=== PATIENT | female | born 1965 | race Caucasian/White ===

== ENCOUNTER 2016-09-25 20:43 | Inpatient (IN) | payer MEDICAID ==
[~2016-09-25] VITALS: Ht 165.1 cm; Wt 124.5 kg
[~2016-09-25 20:43] MED LIST: ASPI-247 PO; ATE50T PO; CLON05T PO; CLOP75TA28 PO; LISI40TA PO; LOVA40TA72 PO; NOR10T PO; OMEP20CA5 PO; SERT-135 PO; TOPI50TA32 PO
[2016-09-25 21:14] LABS: Basophils # (auto) 0 uL; Basophils % (auto) 0.4 % (0.0-2.0); Eosinophils # (auto) 0.2 uL; Eosinophils % (auto) 1.5 % (0.0-7.0); Hematocrit 33.5 % (36.0-46.0); Hemoglobin 10.4 g/dL (12.2-16.2); Lymphocytes # (auto) 3.6 uL; Lymphocytes % (auto) 31.7 % (10.0-50.0); Mean Corpuscular Hemoglobin 22.5 pg (28.0-32.0); Mean Corpuscular Hgb Conc. 31.1 g/dL (32.0-36.0); Mean Corpuscular Volume 72.4 fL (80.0-100.0); Monocytes # (auto) 0.6 uL; Monocytes % (auto) 5.5 % (0.0-12.0); Neutrophils # (auto) 6.8 uL; Neutrophils % (auto) 60.9 % (37.0-80.0); Platelet Count (auto) 420 10^3/uL (140-450); Red Cell Distribution Width 17.8 % (11.6-16.0); White Blood Cell 11.2 10^3/uL (4.4-10.8)
[2016-09-25 21:15] LABS: DEFINITIVE VIEW TRANSMISSION; Mean Platelet Volume 8.5 fL (7.4-10.4)
[2016-09-25 21:28] LABS: INR 0.93 (0.9-1.15); Partial Thromboplastin Time 24.4 sec (22.64-33.71); Prothrombin Time 9.6 sec (9.37-12.3)
[2016-09-25 21:36] LABS: Albumin 3.2 g/dL (3.4-5.0); Anion Gap 11 (5-15); Aspartate Aminotransferase 4 U/L (15-37); BUN/Creatinine Ratio 14.7; Blood Urea Nitrogen 16 mg/dL (7-18); Calcium 7.2 mg/dL (8.5-10.1); Carbon Dioxide 23 mmol/L (21-32); Chloride 106 mmol/L (98-107); GFR African American 68 mL/min; GFR Non-African American 56 mL/min; Glucose 97 mg/dL (74-106); Magnesium 2.2 mg/dL (1.6-2.6); Potassium 3.8 mmol/L (3.5-5.1); Sodium 140 mmol/L (136-145)
[2016-09-25 21:41] LABS: Alkaline Phosphatase 105 U/L (45-117); Bilirubin, Total 0.2 mg/dL (0.2-1.0); Total Protein 7.5 g/dL (6.4-8.2)
[2016-09-25 21:49] LABS: B-Type Natriuretic Peptide 13.7 pg/mL (0-100)
[2016-09-25 22:07] LABS: Temperature: 23.3 C (20.0-25.0)
[2016-09-26] MEDS ORDERED: ONDANSETRON ODT 4 MG TAB PO ONE (00:15)
[2016-09-26] MEDS ORDERED: ASPirin 81 mg TAB PO ONE (00:15)
[2016-09-26] MEDS ORDERED: METO-281 PO (00:20)
[2016-09-26] MEDS ORDERED: LEVO125T6 PO (00:20)
[2016-09-26] MEDS ORDERED: LIOT5TAB PO (00:20)
[2016-09-26] MEDS ORDERED: LEVE750T15 PO (00:20)
[2016-09-26] MEDS ORDERED: LANS30CA63 PO (00:20)
[2016-09-26] MEDS ORDERED: TEMA15CA PO (00:20)
[2016-09-26] MEDS ORDERED: ESTR1TAB36 PO (00:20)
[2016-09-26] MEDS ORDERED: CALC0.25 PO (00:20)
[2016-09-26] MEDS ORDERED: DIPH50TA9 PO (00:20)
[2016-09-26] MEDS ORDERED: METF-312 PO (00:20)
[2016-09-26] MEDS ORDERED: ACETAMINOPHEN 325 MG TAB PO PRN (01:15)
[2016-09-26] MEDS ORDERED: ONDANSETRON HCL 4 MG/2 ML VIAL IV PRN (01:15)
[2016-09-26] MEDS ORDERED: DEXTROSE (50%) 50ML SYRG IV PRN (01:15)
[2016-09-26] MEDS: clonazePAM 0.5 MG TAB PO SCH ×2 (01:47→21:50)
[2016-09-26] MEDS: HYDROcodone-ACET 5/325MG TAB PO PRN ×3 (02:35→16:31)
[2016-09-26 02:41] VITALS: BP 140/70
[2016-09-26] MEDS ORDERED: LORA-622 PO (04:34)
[2016-09-26] MEDS ORDERED: TOPI100T29 PO (04:34)
[2016-09-26] MEDS ORDERED: ERGO1CAP6 PO (04:34)
[2016-09-26] MEDS ORDERED: ATEN100T PO (04:34)
[2016-09-26 05:07] VITALS: BP 123/73
[2016-09-26] MEDS: ACCU-CHEK COMFORT CURVE STRIP VI SCH ×4 (05:57→23:11)
[2016-09-26] MEDS: InsuLIN REG 1unit/0.01ml Soln (100units/ml) SC SCH ×4 (05:57→23:11)
[2016-09-26] MEDS: LEVOTHYROXINE SODIUM 25 MCG TAB PO SCH (05:58)
[2016-09-26] MEDS ORDERED: PNEUMOCOCCAL VACC POLYS 25 MCG/0.5 ML VIAL IM ONE (07:15)
[2016-09-26 09:00] VITALS: BP 109/62
[2016-09-26] MEDS: ATENOLOL 50 MG TAB PO SCH (10:00)
[2016-09-26] MEDS ORDERED: LEVETIRACETAM 500 MG TAB PO SCH (10:00)
[2016-09-26] MEDS: TOPIRAMATE 25 MG TAB PO SCH ×2 (11:20→21:51)
[2016-09-26] MEDS: SERTRALINE HCL 50 MG TAB PO SCH (11:20)
[2016-09-26] MEDS: CLOPIDOGREL BISULFATE 75 MG TAB PO SCH (11:20)
[2016-09-26] MEDS: FAMOTIDINE 20 MG TAB PO SCH ×2 (11:21→21:51)
[2016-09-26] MEDS: ENOXAPARIN SOD 40 MG/0.4 ML SYRINGE SC SCH (11:21)
[2016-09-26 12:32] VITALS: BP 119/58
[2016-09-26] MEDS ORDERED: LORazepam 2MG/ML-1ML VIAL IV ONE (15:15)
[2016-09-26 16:55] VITALS: BP 110/71
[2016-09-26 21:43] VITALS: BP 122/72
[2016-09-26] MEDS: LEVETIRACETAM 500 MG TAB PO SCH (21:50)
[2016-09-26] MEDS ORDERED: PATIENTS OWN MEDICATION (lovastatin 40 MG) PO SCH ×2 (22:00)
[2016-09-26] MEDS ORDERED: ATORVASTATIN 20 MG TAB PO SCH (22:00)
[2016-09-27 04:51] VITALS: BP 133/71
[2016-09-27] MEDS: InsuLIN REG 1unit/0.01ml Soln (100units/ml) SC SCH ×2 (05:00→11:18)
[2016-09-27] MEDS: ACCU-CHEK COMFORT CURVE STRIP VI SCH ×2 (05:01→11:18)
[2016-09-27 05:48] LABS: Basophils # (auto) 0 uL; Basophils % (auto) 0.6 % (0.0-2.0); DEFINITIVE VIEW TRANSMISSION; Eosinophils # (auto) 0.2 uL; Eosinophils % (auto) 2.3 % (0.0-7.0); Hematocrit 30.2 % (36.0-46.0); Hemoglobin 9.4 g/dL (12.2-16.2); Lymphocytes # (auto) 3.2 uL; Lymphocytes % (auto) 43.5 % (10.0-50.0); Mean Corpuscular Hemoglobin 22.7 pg (28.0-32.0); Mean Corpuscular Hgb Conc. 31.3 g/dL (32.0-36.0); Mean Corpuscular Volume 72.4 fL (80.0-100.0); Mean Platelet Volume 8.8 fL (7.4-10.4); Monocytes # (auto) 0.5 uL; Monocytes % (auto) 6.5 % (0.0-12.0); Neutrophils # (auto) 3.5 uL; Neutrophils % (auto) 47.1 % (37.0-80.0); Platelet Count (auto) 319 10^3/uL (140-450); Red Cell Distribution Width 17.5 % (11.6-16.0); White Blood Cell 7.4 10^3/uL (4.4-10.8)
[2016-09-27 06:02] LABS: Albumin 2.8 g/dL (3.4-5.0); BUN/Creatinine Ratio 14.3; Calcium 7.1 mg/dL (8.5-10.1); Potassium 3.5 mmol/L (3.5-5.1)
[2016-09-27 06:05] LABS: Bilirubin, Total 0.3 mg/dL (0.2-1.0); Total Protein 6.4 g/dL (6.4-8.2)
[2016-09-27] MEDS: LEVOTHYROXINE SODIUM 25 MCG TAB PO SCH (06:30)
[2016-09-27 09:00] VITALS: BP 118/73
[2016-09-27] MEDS: FAMOTIDINE 20 MG TAB PO SCH (09:17)
[2016-09-27] MEDS: CLOPIDOGREL BISULFATE 75 MG TAB PO SCH (09:18)
[2016-09-27] MEDS: SERTRALINE HCL 50 MG TAB PO SCH (09:18)
[2016-09-27] MEDS: ENOXAPARIN SOD 40 MG/0.4 ML SYRINGE SC SCH (09:18)
[2016-09-27] MEDS: LEVETIRACETAM 500 MG TAB PO SCH (09:18)
[2016-09-27] MEDS: TOPIRAMATE 25 MG TAB PO SCH (09:18)
[2016-09-27] MEDS: HYDROcodone-ACET 5/325MG TAB PO PRN ×2 (09:19→15:42)
[2016-09-27] MEDS: ATENOLOL 50 MG TAB PO SCH (09:19)
[2016-09-27 12:56] VITALS: BP 106/72
[2016-09-27] MEDS: LORazepam 2MG/ML-1ML VIAL IV PRN ×2 (13:48→16:39)
[2016-09-27 17:00] VITALS: BP 114/65
== END 2016-09-27 17:30 | disposition left against medical advice (07) | DRG 53 ==
LOC: ER 20:46 → WEST WING 20:47
PROVIDERS: ADMIT Nurse Practitioner; ATTEND Internal Medicine
DX: G40.909 Epilepsy, unspecified, not intractable, without status epilepticus (principal); Z68.42 Body mass index [BMI] 45.0-49.9, adult; I10 Essential (primary) hypertension; R53.1 Weakness; E66.01 Morbid (severe) obesity due to excess calories; E11.9 Type 2 diabetes mellitus without complications; E78.5 Hyperlipidemia, unspecified; F32.9 Major depressive disorder, single episode, unspecified; F41.9 Anxiety disorder, unspecified; K21.9 Gastro-esophageal reflux disease without esophagitis; G43.409 Hemiplegic migraine, not intractable, without status migrainosus; E89.0 Postprocedural hypothyroidism; G47.00 Insomnia, unspecified; F80.81 Childhood onset fluency disorder; J44.9 Chronic obstructive pulmonary disease, unspecified; Z82.49 Family history of ischemic heart disease and other diseases of the circulatory system; Z86.73 Personal history of transient ischemic attack (TIA), and cerebral infarction without residual deficits; Z83.3 Family history of diabetes mellitus; Z98.51 Tubal ligation status; Z90.49 Acquired absence of other specified parts of digestive tract; Z98.890 Other specified postprocedural states; Z88.8 Allergy status to other drugs, medicaments and biological substances; Z23 Encounter for immunization
CPT/HCPCS: 36415; 70450; 71010; 80053; 82962; 83735; 83880; 84484; 85025; 85610; 85730; 93005; 93306; 93886; 95819; Q0162

== ENCOUNTER 2016-11-29 22:56 | Emergency (ER) | payer MEDICAID ==
[~2016-11-29] VITALS: Ht 175.3 cm; Wt 113.4 kg
[~2016-11-29 22:56] MED LIST changes: -ASPI-247 PO; -ATE50T PO; +ATEN100T PO; +CALC0.25 PO; -CLOP75TA28 PO; +DIPH50TA9 PO; +ERGO1CAP6 PO; +ESTR1TAB36 PO; +LANS30CA63 PO; +LEVE750T15 PO; +LEVO125T6 PO; +LIOT5TAB PO; -LISI40TA PO; +LORA-622 PO; +METF-312 PO; +METO-281 PO; -NOR10T PO; -OMEP20CA5 PO; +TEMA15CA PO; +TOPI100T29 PO; -TOPI50TA32 PO
[2016-11-30] MEDS ORDERED: LEVETIRACETAM INJ 1,000 MG in SODIUM CHL 0.9% 100 ML IV ONE (01:00)
[2016-11-30 01:16] LABS: Albumin 2.9 g/dL (3.4-5.0); Anion Gap 12 (5-15); Aspartate Aminotransferase 11 U/L (15-37); BUN/Creatinine Ratio 12.7; Blood Urea Nitrogen 13 mg/dL (7-18); Calcium 7.9 mg/dL (8.5-10.1); Carbon Dioxide 22 mmol/L (21-32); Chloride 108 mmol/L (98-107); GFR African American 73 mL/min; GFR Non-African American 60 mL/min; Glucose 113 mg/dL (74-106); Potassium 3.8 mmol/L (3.5-5.1); Sodium 142 mmol/L (136-145)
[2016-11-30 01:18] LABS: Alkaline Phosphatase 85 U/L (45-117); Bilirubin, Total < 0.1 mg/dL (0.2-1.0)
[2016-11-30 01:27] LABS: Basophils # (auto) 0 uL; Basophils % (auto) 0.5 % (0.0-2.0); DEFINITIVE VIEW TRANSMISSION; Eosinophils # (auto) 0.2 uL; Eosinophils % (auto) 2.3 % (0.0-7.0); Hemoglobin 10.1 g/dL (12.2-16.2); Lymphocytes # (auto) 4.3 uL; Lymphocytes % (auto) 47.1 % (10.0-50.0); Mean Corpuscular Hemoglobin 22.4 pg (28.0-32.0); Mean Corpuscular Hgb Conc. 31.5 g/dL (32.0-36.0); Mean Corpuscular Volume 71.1 fL (80.0-100.0); Mean Platelet Volume 9.1 fL (7.4-10.4); Monocytes # (auto) 0.5 uL; Monocytes % (auto) 5.6 % (0.0-12.0); Neutrophils # (auto) 4.1 uL; Neutrophils % (auto) 44.5 % (37.0-80.0); Platelet Count (auto) 366 10^3/uL (140-450); Red Cell Distribution Width 19.3 % (11.6-16.0); White Blood Cell 9.2 10^3/uL (4.4-10.8)
[2016-11-30] MEDS ORDERED: LEVETIRACETAM 500 MG/5ML INJ IV ONE (02:09)
[2016-11-30 03:33] VITALS: BP 111/74
== END 2016-11-30 03:33 | disposition home or self-care (01) ==
LOC: ER 23:01
DX: G40.909 Epilepsy, unspecified, not intractable, without status epilepticus (principal); G43.909 Migraine, unspecified, not intractable, without status migrainosus; E11.9 Type 2 diabetes mellitus without complications; J44.9 Chronic obstructive pulmonary disease, unspecified; I10 Essential (primary) hypertension; K21.9 Gastro-esophageal reflux disease without esophagitis; Z86.73 Personal history of transient ischemic attack (TIA), and cerebral infarction without residual deficits; E78.5 Hyperlipidemia, unspecified; E07.9 Disorder of thyroid, unspecified
CPT/HCPCS: 36415; 70450; 80053; 85025; 96365; 99285; J1953; 93005

== ENCOUNTER 2017-09-27 15:49 | Inpatient (IN) | payer MEDICAID ==
[~2017-09-27] VITALS: Ht 175.3 cm; Wt 119.5 kg
[~2017-09-27 15:49] MED LIST changes: +ESTR1TAB3 PO; -ESTR1TAB36 PO; -LEVO125T6 PO; +LEVO125T7 PO; -METF-312 PO; +METF-370 PO
[2017-09-27 16:21] LABS: Basophils # (auto) 0.1 uL; Basophils % (auto) 0.8 % (0.0-2.0); Eosinophils # (auto) 0.1 uL; Eosinophils % (auto) 1.4 % (0.0-7.0); Hematocrit 35.2 % (36.0-46.0); Hemoglobin 10.9 g/dL (12.2-16.2); Lymphocytes # (auto) 3.1 uL; Lymphocytes % (auto) 32.7 % (10.0-50.0); Mean Corpuscular Hemoglobin 22.9 pg (28.0-32.0); Mean Corpuscular Volume 73.9 fL (80.0-100.0); Monocytes # (auto) 0.5 uL; Monocytes % (auto) 4.8 % (0.0-12.0); Neutrophils # (auto) 5.7 uL; Neutrophils % (auto) 60.3 % (37.0-80.0); Nucleated Red Blood Cells % 0.1 %; Platelet Count (auto) 317 10^3/uL (140-450); Red Blood Cells 4.77 10^6/uL (4.0-5.20); Red Cell Distribution Width 18.7 % (11.8-14.3); White Blood Cell 9.5 10^3/uL (4.4-10.8)
[2017-09-27 16:39] LABS: Alanine Aminotransferase 13 U/L (13-56); Albumin 3.3 g/dL (3.4-5.0); Alkaline Phosphatase 67 U/L (45-117); Anion Gap 9 (5-15); Aspartate Aminotransferase 8 U/L (15-37); BUN/Creatinine Ratio 12.8; Bilirubin, Total 0.2 mg/dL (0.2-1.0); Blood Urea Nitrogen 12 mg/dL (7-18); Calcium 7.4 mg/dL (8.5-10.1); Carbon Dioxide 21 mmol/L (21-32); Chloride 110 mmol/L (98-107); GFR African American 80 mL/min; GFR Non-African American 66 mL/min; Glucose 100 mg/dL (74-106); Magnesium 2.1 mg/dL (1.6-2.6); Potassium 3.7 mmol/L (3.5-5.1); Sodium 140 mmol/L (136-145); Total Protein 7.1 g/dL (6.4-8.2)
[2017-09-27] MEDS ORDERED: ONDANSETRON HCL 4 MG/2 ML VIAL IV ONE (20:45)
[2017-09-27] MEDS ORDERED: MORPHINE SULFATE 4 MG/ML SYR/VIAL IV ONE (20:45)
[2017-09-27 22:20] LABS: INR 0.91 (0.9-1.15); Partial Thromboplastin Time 20.2 sec (22.64-33.71); Prothrombin Time 9.9 sec (9.37-12.3)
[2017-09-27 22:44] LABS: Urine Bacteria FEW /hpf (None Seen); Urine Blood Negative /uL (Negative); Urine Mucus FEW (None Seen); Urine Specific Gravity 1.011 (1.001-1.035); Urine WBC 2 /hpf (0 - 5)
[2017-09-27] MEDS ORDERED: ONDANSETRON HCL 4 MG/2 ML VIAL IV PRN (23:15)
[2017-09-27] MEDS ORDERED: ACETAMINOPHEN 500 MG TAB PO PRN (23:15)
[2017-09-27] MEDS ORDERED: HYDROcodone-ACET 5/325MG TAB PO PRN (23:15)
[2017-09-27] MEDS ORDERED: MORPHINE SULFATE 4 MG/ML SYR/VIAL IV PRN ×2 (23:15)
[2017-09-27] MEDS ORDERED: FLUT110A INH (23:50)
[2017-09-27] MEDS ORDERED: CLOP75TA28 PO (23:50)
[2017-09-27] MEDS ORDERED: ONDA4TAB5 PO (23:50)
[2017-09-28] VITALS (9 sets, daily range): BP systolic 104–127; BP diastolic 57–79
[2017-09-28 05:42] LABS: Basophils # (auto) 0.1 uL; Basophils % (auto) 0.6 % (0.0-2.0); Eosinophils # (auto) 0.1 uL; Hemoglobin 10.2 g/dL (12.2-16.2); Lymphocytes # (auto) 3.7 uL; Monocytes # (auto) 0.5 uL
[2017-09-28 05:45] LABS: Eosinophils % (auto) 1.2 % (0.0-7.0); Hematocrit 33.4 % (36.0-46.0); Lymphocytes % (auto) 39.8 % (10.0-50.0); Mean Corpuscular Hemoglobin 23.2 pg (28.0-32.0); Mean Corpuscular Hgb Conc. 30.6 g/dL (32.0-36.0); Mean Corpuscular Volume 75.9 fL (80.0-100.0); Monocytes % (auto) 5.4 % (0.0-12.0); Neutrophils # (auto) 4.9 uL; Nucleated Red Blood Cells % 0.2 %; Platelet Count (auto) 273 10^3/uL (140-450); Red Cell Distribution Width 18.8 % (11.8-14.3); White Blood Cell 9.2 10^3/uL (4.4-10.8)
[2017-09-28 05:55] LABS: BUN/Creatinine Ratio 12.8; Calcium 7.7 mg/dL (8.5-10.1); Potassium 3.8 mmol/L (3.5-5.1)
[2017-09-28] MEDS ORDERED: LORazepam 2MG/ML-1ML VIAL IV PRN (06:00)
[2017-09-28] MEDS ORDERED: DEXTROSE (50%) 50ML SYRG IV PRN (06:00)
[2017-09-28] MEDS: InsuLIN REG 1unit/0.01ml Soln (100units/ml) SC SCH ×3 (06:37→17:00)
[2017-09-28] MEDS ORDERED: LEVOTHYROXINE SODIUM 50 MCG TAB PO SCH (07:00)
[2017-09-28] MEDS: ACCU-CHEK COMFORT CURVE STRIP VI SCH ×3 (07:11→17:00)
[2017-09-28] MEDS ORDERED: SERTRALINE HCL 50 MG TAB PO SCH (10:00)
[2017-09-28] MEDS ORDERED: TOPIRAMATE 100 MG TAB PO SCH (10:00)
[2017-09-28] MEDS ORDERED: CLOPIDOGREL BISULFATE 75 MG TAB PO SCH (10:00)
[2017-09-28] MEDS: NITROGLYCERIN 0.4 MG SL TAB SL PRN ×2 (13:50→13:55)
[2017-09-28] MEDS ORDERED: ATORVASTATIN 20 MG TAB PO SCH (22:00)
== END 2017-09-28 17:20 | disposition home or self-care (01) | DRG 203 ==
LOC: EDBD 15:49 → ER 15:49 → EDUNIT# 15:49 → TELE 15:50 → TELE-CENTR 09-28 00:30
PROVIDERS: ADMIT Nurse Practitioner Family; ATTEND Nurse Practitioner Family
DX: R07.89 Other chest pain (principal); R56.9 Unspecified convulsions; I50.9 Heart failure, unspecified; E66.01 Morbid (severe) obesity due to excess calories; I11.0 Hypertensive heart disease with heart failure; E11.9 Type 2 diabetes mellitus without complications; D64.9 Anemia, unspecified; J44.9 Chronic obstructive pulmonary disease, unspecified; E78.5 Hyperlipidemia, unspecified; F41.9 Anxiety disorder, unspecified; G43.909 Migraine, unspecified, not intractable, without status migrainosus; K21.9 Gastro-esophageal reflux disease without esophagitis; F32.9 Major depressive disorder, single episode, unspecified; M19.90 Unspecified osteoarthritis, unspecified site; Z79.899 Other long term (current) drug therapy; Z79.51 Long term (current) use of inhaled steroids; Z82.49 Family history of ischemic heart disease and other diseases of the circulatory system; Z83.3 Family history of diabetes mellitus; Z90.710 Acquired absence of both cervix and uterus; Z68.38 Body mass index [BMI] 38.0-38.9, adult
CPT/HCPCS: 36415; 71045; 80048; 80053; 81001; 82962; 83735; 83880; 84443; 84484; 85025; 85610; 85730; 93005; 94761; 96374; 96375; J2405

== ENCOUNTER 2017-12-17 07:53 | Inpatient (IN) | payer MEDICAID ==
[~2017-12-17] VITALS: Ht 175.3 cm; Wt 135.9 kg
[~2017-12-17 07:53] MED LIST changes: -CLON05T PO; +CLOP75TA28 PO; -ERGO1CAP6 PO; +FLUT110A INH; -LEVE750T15 PO; -METO-281 PO; +ONDA4TAB5 PO; -TEMA15CA PO
[2017-12-17 08:32] LABS: Eosinophils # (auto) 0.2 uL; Monocytes # (auto) 0.6 uL; Nucleated Red Blood Cells % 0.1 %; White Blood Cell 12.8 10^3/uL (4.4-10.8)
[2017-12-17 08:34] LABS: Basophils # (auto) 0.1 uL; Basophils % (auto) 1.1 % (0.0-2.0); Eosinophils % (auto) 1.4 % (0.0-7.0); Hematocrit 36.2 % (36.0-46.0); Hemoglobin 11.2 g/dL (12.2-16.2); Lymphocytes # (auto) 5.3 uL; Lymphocytes % (auto) 40.9 % (10.0-50.0); Mean Corpuscular Hemoglobin 23.1 pg (28.0-32.0); Mean Corpuscular Volume 74.6 fL (80.0-100.0); Monocytes % (auto) 4.8 % (0.0-12.0); Neutrophils # (auto) 6.7 uL; Neutrophils % (auto) 51.8 % (37.0-80.0); Platelet Count (auto) 310 10^3/uL (140-450); Red Blood Cells 4.85 10^6/uL (4.0-5.20); Red Cell Distribution Width 18.1 % (11.8-14.3)
[2017-12-17 08:43] LABS: INR 0.87 (0.9-1.15); Partial Thromboplastin Time 24.5 sec (23.78-33.04); Prothrombin Time 9.4 sec (9.27-12.13)
[2017-12-17 09:11] LABS: Alkaline Phosphatase 73 U/L (45-117); Anion Gap 13 (5-15); Aspartate Aminotransferase 14 U/L (15-37); BUN/Creatinine Ratio 17.1; Blood Urea Nitrogen 19 mg/dL (7-18); Carbon Dioxide 18 mmol/L (21-32); Chloride 107 mmol/L (98-107); GFR African American 66 mL/min; GFR Non-African American 54 mL/min; Glucose 93 mg/dL (74-106); Potassium 4.4 mmol/L (3.5-5.1); Sodium 138 mmol/L (136-145)
[2017-12-17 09:12] LABS: Alanine Aminotransferase 14 U/L (13-56); Albumin 3.1 g/dL (3.4-5.0); Bilirubin, Total 0.3 mg/dL (0.2-1.0); Calcium 7.3 mg/dL (8.5-10.1); Total Protein 7.4 g/dL (6.4-8.2)
[2017-12-17] MEDS ORDERED: SODIUM CHLORIDE 0.9% 1,000 ML IV ONE (09:57)
[2017-12-17] MEDS ORDERED: HYDROmorphone HCL 2 MG/ML VL IV ONE (10:00)
[2017-12-17] MEDS ORDERED: DEXAMETHASONE SOD PHOS 4 MG/1ML SDV INJ IV ONE (10:00)
[2017-12-17] MEDS ORDERED: METOCLOPRAMIDE HCL 5MG/ml INJ 2ml VIAL IV ONE (10:00)
[2017-12-17] MEDS ORDERED: PROMETHAZINE HCL 25 MG/ML 1ML IV ONE (12:45)
[2017-12-17] MEDS ORDERED: MEPERIDINE HCL (50 MG/ML) 1 ML VIAL IV ONE (12:45)
[2017-12-17 13:13] LABS: Urine Bacteria NONE SEEN /hpf (None Seen); Urine Blood Negative /uL (Negative); Urine Specific Gravity 1.018 (1.001-1.035); Urine WBC 1 /hpf (0 - 5)
[2017-12-17] MEDS ORDERED: LORazepam 2MG/ML-1ML VIAL IV PRN (14:30)
[2017-12-17] MEDS ORDERED: HYDROcodone-ACET 5/325MG TAB PO PRN (14:30)
[2017-12-17] MEDS ORDERED: SODIUM CHLORIDE 0.9% 1,000 ML IV SCH ×3 (14:30→17:00)
[2017-12-17] MEDS ORDERED: IOHEXOL 300 MG/ML 100ML BOTTLE IJ ONE (14:51)
[2017-12-17] MEDS ORDERED: LACTULOSE 20Gm/30ML SOLN PO PRN (15:00)
[2017-12-17] MEDS ORDERED: LORazepam 0.5 MG TAB PO PRN (15:00)
[2017-12-17] MEDS ORDERED: MORPHINE SULF(PF) 0.5MG/ML 10ML VIAL IV PRN (15:00)
[2017-12-17] MEDS ORDERED: ACETAMINOPHEN 500 MG TAB PO PRN (15:00)
[2017-12-17] MEDS ORDERED: MORPHINE SULFATE 8mg/ml INJ SDV IV PRN (15:00)
[2017-12-17] MEDS ORDERED: PROMETHAZINE HCL 25 MG/ML 1ML IV PRN (15:00)
[2017-12-17] MEDS ORDERED: DEXTROSE (50%) 50ML SYRG IV PRN (15:00)
[2017-12-17] MEDS ORDERED: LABETALOL HCL 5 MG/ML ML 20ML VIAL IV PRN (15:00)
[2017-12-17] MEDS ORDERED: NITROGLYCERIN 0.4 MG SL TAB SL PRN (15:00)
[2017-12-17] MEDS ORDERED: TEMAZEPAM 15 MG CAP PO PRN (15:00)
[2017-12-17 15:34] LABS: Alcohol, Urine < 3.0 mg/dL (0-5); Amphetamine Screen, Urine NEGATIVE (NEGATIVE); Barbiturate Scree,Urine NEGATIVE (NEGATIVE); Benzodiazephine Screen, Urine NEGATIVE (NEGATIVE); Cannabinoid Screen, Urine NEGATIVE (NEGATIVE); Cocaine Screen, Urine NEGATIVE (NEGATIVE); Opiate Scree,Urine NEGATIVE (NEGATIVE); Phencyclidine Screen, Urine NEGATIVE (NEGATIVE)
[2017-12-17] MEDS ORDERED: diphenhdrAMINE HCL 25 MG CAP PO PRN (15:45)
[2017-12-17] MEDS: KETOROLAC TROMETH 30 MG/ML 1ML VIAL IV PRN ×2 (15:45→22:34)
[2017-12-17] MEDS ORDERED: CLOPIDOGREL BISULFATE 75 MG TAB PO ONE (16:00)
[2017-12-17] MEDS ORDERED: ASPirin 81 mg TAB PO ONE (16:00)
[2017-12-17] MEDS ORDERED: METOCLOPRAMIDE HCL 10 MG TAB PO ONE (16:00)
[2017-12-17] MEDS ORDERED: CALCITRIOL 0.25 MCG CAP PO ONE (16:00)
[2017-12-17] MEDS ORDERED: ATENOLOL 50 MG TAB PO ONE (16:00)
[2017-12-17] MEDS ORDERED: ESTRADIOL 1 MG TAB PO ONE (16:00)
[2017-12-17] MEDS ORDERED: PANTOPRAZOLE 40 MG TAB PO ONE (16:00)
[2017-12-17] MEDS ORDERED: DEXAMETHASONE INJECTION 10 MG in D5W 5% 50 ML IV ONE (16:00)
[2017-12-17] MEDS ORDERED: SERTRALINE HCL 50 MG TAB PO ONE (16:00)
[2017-12-17] MEDS ORDERED: TOPIRAMATE 100 MG TAB PO ONE (16:00)
[2017-12-17] MEDS ORDERED: LEVOTHYROXINE SODIUM 100 MCG TAB PO ONE (16:00)
[2017-12-17] MEDS ORDERED: LEVOTHYROXINE SODIUM 25 MCG TAB PO ONE (16:00)
[2017-12-17 16:41] LABS: Folate (Folic Acid) 23.44 ng/mL (5.38-24)
[2017-12-17] MEDS: ACCU-CHEK COMFORT CURVE STRIP VI SCH ×2 (17:08→22:33)
[2017-12-17] MEDS: ONDANSETRON ODT 4 MG TAB PO SCH (17:38)
[2017-12-17] MEDS: InsuLIN REG 1unit/0.01ml Soln (100units/ml) SC SCH ×2 (17:43→22:33)
[2017-12-17 21:00] VITALS: BP 112/61
[2017-12-17] MEDS: LIOTHYRONINE SODIUM 5 MCG PO SCH (21:09)
[2017-12-17] MEDS: HYDROcodone-ACET 5/325MG TAB PO PRN (21:10)
[2017-12-17] MEDS: METOCLOPRAMIDE HCL 10 MG TAB PO SCH (21:11)
[2017-12-17] MEDS: CALCITRIOL 0.25 MCG CAP PO SCH (21:11)
[2017-12-17] MEDS: ATORVASTATIN 20 MG TAB PO SCH (21:11)
[2017-12-17 22:00] VITALS: BP 112/61
[2017-12-17] MEDS ORDERED: PATIENTS OWN MEDICATION (Lovastatin 40 MG) PO SCH (22:00)
[2017-12-17] MEDS ORDERED: TOPIRAMATE 100 MG TAB PO SCH (22:00)
[2017-12-18] MEDS: ONDANSETRON ODT 4 MG TAB PO SCH ×4 (00:17→18:46)
[2017-12-18] MEDS: SODIUM CHLORIDE 0.9% 1,000 ML IV SCH ×2 (02:19→15:39)
[2017-12-18 05:08] VITALS: BP 110/64
[2017-12-18] MEDS: LEVOTHYROXINE SODIUM 100 MCG TAB PO SCH (06:16)
[2017-12-18] MEDS: METOCLOPRAMIDE HCL 10 MG TAB PO SCH ×3 (06:16→21:53)
[2017-12-18] MEDS: LEVOTHYROXINE SODIUM 25 MCG TAB PO SCH (06:17)
[2017-12-18] MEDS: KETOROLAC TROMETH 30 MG/ML 1ML VIAL IV PRN ×3 (06:17→18:47)
[2017-12-18] MEDS: ACCU-CHEK COMFORT CURVE STRIP VI SCH ×4 (06:47→21:53)
[2017-12-18] MEDS: InsuLIN REG 1unit/0.01ml Soln (100units/ml) SC SCH ×4 (06:47→21:54)
[2017-12-18] MEDS: ESTRADIOL 1 MG TAB PO SCH (09:57)
[2017-12-18] MEDS: HYDROcodone-ACET 5/325MG TAB PO PRN ×3 (09:57→21:53)
[2017-12-18] MEDS: SERTRALINE HCL 50 MG TAB PO SCH (09:58)
[2017-12-18] MEDS: CALCITRIOL 0.25 MCG CAP PO SCH (09:58)
[2017-12-18] MEDS: PANTOPRAZOLE 40 MG TAB PO SCH (09:58)
[2017-12-18] MEDS: ASPirin 81 mg TAB PO SCH (09:59)
[2017-12-18] MEDS: LIOTHYRONINE SODIUM 5 MCG PO SCH ×2 (09:59→21:52)
[2017-12-18] MEDS ORDERED: ATENOLOL 50 MG TAB PO SCH (10:00)
[2017-12-18] MEDS ORDERED: CLOPIDOGREL BISULFATE 75 MG TAB PO SCH (10:00)
[2017-12-18] MEDS ORDERED: CALCITRIOL 0.25 MCG CAP PO SCH (10:00)
[2017-12-18 10:03] VITALS: BP 110/65
[2017-12-18] MEDS: DEXAMETHASONE INJECTION 10 MG in D5W 5% 50 ML IV SCH (10:55)
[2017-12-18 13:00] VITALS: BP 98/55
[2017-12-18 17:25] VITALS: BP 112/64
[2017-12-18 21:30] VITALS: BP 109/62
[2017-12-18] MEDS: ATORVASTATIN 20 MG TAB PO SCH (21:53)
[2017-12-19] MEDS: ONDANSETRON ODT 4 MG TAB PO SCH ×3 (00:50→12:28)
[2017-12-19] MEDS: KETOROLAC TROMETH 30 MG/ML 1ML VIAL IV PRN ×2 (00:50→10:39)
[2017-12-19] MEDS: SODIUM CHLORIDE 0.9% 1,000 ML IV SCH (04:03)
[2017-12-19 05:00] VITALS: BP 130/71
[2017-12-19] MEDS: ACCU-CHEK COMFORT CURVE STRIP VI SCH ×2 (06:08→12:28)
[2017-12-19] MEDS: InsuLIN REG 1unit/0.01ml Soln (100units/ml) SC SCH ×2 (06:09→11:30)
[2017-12-19] MEDS: LEVOTHYROXINE SODIUM 100 MCG TAB PO SCH (06:29)
[2017-12-19] MEDS: METOCLOPRAMIDE HCL 10 MG TAB PO SCH ×2 (06:29→14:22)
[2017-12-19] MEDS: HYDROcodone-ACET 5/325MG TAB PO PRN (06:30)
[2017-12-19] MEDS: LEVOTHYROXINE SODIUM 25 MCG TAB PO SCH (06:30)
[2017-12-19 09:00] VITALS: BP 115/73
[2017-12-19] MEDS: LIOTHYRONINE SODIUM 5 MCG PO SCH (10:00)
[2017-12-19] MEDS: SERTRALINE HCL 50 MG TAB PO SCH (10:39)
[2017-12-19] MEDS: PANTOPRAZOLE 40 MG TAB PO SCH (10:39)
[2017-12-19] MEDS: ASPirin 81 mg TAB PO SCH (10:39)
[2017-12-19] MEDS: CALCITRIOL 0.25 MCG CAP PO SCH (10:39)
[2017-12-19] MEDS: ESTRADIOL 1 MG TAB PO SCH (10:40)
[2017-12-19] MEDS: DEXAMETHASONE INJECTION 10 MG in D5W 5% 50 ML IV SCH (10:45)
[2017-12-19 14:51] VITALS: BP 129/72
[2017-12-19 15:10] VITALS: BP 129/72
== END 2017-12-19 16:50 | disposition home or self-care (01) | DRG 54 ==
LOC: ER 07:56 → TELE 07:57 → TELE-EAST 20:27
PROVIDERS: ADMIT Internal Medicine; ATTEND Internal Medicine
DX: G43.419 Hemiplegic migraine, intractable, without status migrainosus (principal); Z68.41 Body mass index [BMI] 40.0-44.9, adult; G40.89 Other seizures; I10 Essential (primary) hypertension; E11.9 Type 2 diabetes mellitus without complications; D72.829 Elevated white blood cell count, unspecified; F32.9 Major depressive disorder, single episode, unspecified; E66.01 Morbid (severe) obesity due to excess calories; G44.209 Tension-type headache, unspecified, not intractable; Z83.3 Family history of diabetes mellitus; R32 Unspecified urinary incontinence; J44.9 Chronic obstructive pulmonary disease, unspecified; K21.9 Gastro-esophageal reflux disease without esophagitis; E03.9 Hypothyroidism, unspecified; M47.892 Other spondylosis, cervical region; Z82.49 Family history of ischemic heart disease and other diseases of the circulatory system; F41.9 Anxiety disorder, unspecified; E78.5 Hyperlipidemia, unspecified; Z87.891 Personal history of nicotine dependence; Z90.710 Acquired absence of both cervix and uterus; Z88.8 Allergy status to other drugs, medicaments and biological substances; Z79.899 Other long term (current) drug therapy; Z90.49 Acquired absence of other specified parts of digestive tract; Z98.51 Tubal ligation status; Z90.89 Acquired absence of other organs
CPT/HCPCS: 36415; 70450; 71260; 72125; 80053; 80307; 81001; 82550; 82607; 82746; 82962; 83036; 84443; 85025; 85610; 85652; 85730; 93005; 93306; 93886; 96374; 96375; J1100; J1815; J1885; J7060; Q0162

== ENCOUNTER 2018-05-30 15:51 | Emergency (ER) | payer MEDICAID ==
[~2018-05-30] VITALS: Ht 175.3 cm; Wt 124.7 kg
[2018-05-30] MEDS ORDERED: ONDANSETRON HCL 4 MG/2 ML VIAL IM ONE (18:15)
[2018-05-30] MEDS ORDERED: cefTRIAXone W LIDOCAINE 1 GM IM IM ONE (18:15)
[2018-05-30] MEDS ORDERED: MORPHINE SULFATE 4 MG/ML SYR/VIAL IM ONE (18:15)
[2018-05-30] MEDS ORDERED: cefTRIAXone SOD 1,000 MG VL ONE (18:26)
[2018-05-30] MEDS ORDERED: LIDOCAINE 1%HCL (LOCAL ANESTH) 10 ML MDV ONE (18:27)
[2018-05-30 19:42] LABS: Basophils % (auto) 1.2 % (0.0-2.0); Eosinophils # (auto) 0.1 uL; Eosinophils % (auto) 0.8 % (0.0-7.0); Monocytes # (auto) 0.7 uL; Monocytes % (auto) 5.3 % (0.0-12.0); White Blood Cell 12.7 10^3/uL (4.4-10.8)
[2018-05-30 19:44] LABS: Basophils # (auto) 0.2 uL; Hematocrit 36.7 % (36.0-46.0); Lymphocytes # (auto) 4.1 uL; Lymphocytes % (auto) 32.5 % (10.0-50.0); Mean Corpuscular Hemoglobin 21.2 pg (28.0-32.0); Mean Corpuscular Hgb Conc. 29.9 g/dL (32.0-36.0); Neutrophils # (auto) 7.6 uL; Neutrophils % (auto) 60.2 % (37.0-80.0); Platelet Count (auto) 403 10^3/uL (140-450); Red Blood Cells 5.17 10^6/uL (4.0-5.20); Red Cell Distribution Width 19.4 % (11.8-14.3)
[2018-05-30 20:21] LABS: Albumin 3.4 g/dL (3.4-5.0); BUN/Creatinine Ratio 13.5; Calcium 8.1 mg/dL (8.5-10.1); Potassium 4.1 mmol/L (3.5-5.1)
[2018-05-30 20:24] LABS: Bilirubin, Total 0.3 mg/dL (0.2-1.0); Total Protein 7.9 g/dL (6.4-8.2)
[2018-05-30] MEDS ORDERED: MORPHINE SULFATE 4 MG/ML SYR/VIAL IV ONE (23:00)
[2018-05-31] MEDS ORDERED: MORPHINE SULFATE 4 MG/ML SYR/VIAL IV ONE ×2 (05:00→12:00)
[2018-05-31] MEDS ORDERED: ONDANSETRON HCL 4 MG/2 ML VIAL IV ONE ×2 (05:00→12:00)
[2018-05-31] MEDS ORDERED: SODIUM CHLORIDE 0.9% 1,000 ML IV ONE (14:30)
[2018-05-31 17:05] VITALS: BP 120/70
== END 2018-05-31 17:05 | disposition short-term general hospital (02) ==
LOC: ER 15:57
DX: J02.9 Acute pharyngitis, unspecified (principal); J44.9 Chronic obstructive pulmonary disease, unspecified; E11.9 Type 2 diabetes mellitus without complications; E78.5 Hyperlipidemia, unspecified; I10 Essential (primary) hypertension; K21.9 Gastro-esophageal reflux disease without esophagitis; E07.89 Other specified disorders of thyroid; Z98.51 Tubal ligation status; Z90.49 Acquired absence of other specified parts of digestive tract; Z90.710 Acquired absence of both cervix and uterus; Z90.89 Acquired absence of other organs; Z48.89 Encounter for other specified surgical aftercare; Z79.899 Other long term (current) drug therapy; Z88.8 Allergy status to other drugs, medicaments and biological substances
CPT/HCPCS: 36415; 72125; 80053; 82962; 85025; 96372; 96374; 96375; 96376; 99285; J0696; J2001; J2270; J2405; J7030

== ENCOUNTER 2019-02-16 12:47 | Emergency (ER) | payer MEDICAID ==
[~2019-02-16] VITALS: Ht 175.3 cm; Wt 145.1 kg
[~2019-02-16 12:47] MED LIST changes: +LANS30CA57 PO; -LANS30CA63 PO; +ONDA-144 PO; -ONDA4TAB5 PO; -SERT-135 PO; +SERT100T PO
[2019-02-16 14:33] LABS: Basophils # (auto) 0 uL; Eosinophils # (auto) 0.2 uL; Hematocrit 33.5 % (36.0-46.0); Lymphocytes # (auto) 3.4 uL; Mean Corpuscular Volume 70.8 fL (80.0-100.0); Monocytes # (auto) 0.5 uL; Nucleated Red Blood Cells % 0.1 %; Red Blood Cells 4.73 10^6/uL (4.0-5.20)
[2019-02-16 14:35] LABS: Basophils % (auto) 0.3 % (0.0-2.0); Eosinophils % (auto) 2.1 % (0.0-7.0); Hemoglobin 10.1 g/dL (12.2-16.2); Lymphocytes % (auto) 35.3 % (10.0-50.0); Mean Corpuscular Hemoglobin 21.4 pg (28.0-32.0); Mean Corpuscular Hgb Conc. 30.3 g/dL (32.0-36.0); Monocytes % (auto) 5.5 % (0.0-12.0); Neutrophils # (auto) 5.5 uL; Neutrophils % (auto) 56.8 % (37.0-80.0); Platelet Count (auto) 328 10^3/uL (140-450); Red Cell Distribution Width 19.8 % (11.8-14.3); White Blood Cell 9.7 10^3/uL (4.4-10.8)
[2019-02-16 14:53] LABS: Alanine Aminotransferase 20 U/L (13-56); Aspartate Aminotransferase 18 U/L (15-37); BUN/Creatinine Ratio 9.3; Blood Urea Nitrogen 10 mg/dL (7-18); Calcium 6.8 mg/dL (8.5-10.1); Chloride 104 mmol/L (98-107); GFR African American 68 mL/min; GFR Non-African American 57 mL/min; Glucose 89 mg/dL (74-106); Potassium 4.6 mmol/L (3.5-5.1); Sodium 137 mmol/L (136-145)
[2019-02-16 15:06] LABS: Alkaline Phosphatase 96 U/L (45-117); Anion Gap 11 (5-15); Bilirubin, Total 0.2 mg/dL (0.2-1.0); Carbon Dioxide 22 mmol/L (21-32); Total Protein 7.3 g/dL (6.4-8.2)
[2019-02-16 15:25] LABS: INR < 0.93 (0.9-1.15)
[2019-02-16 15:26] LABS: Partial Thromboplastin Time > 139.0 sec (23.64-32.05)
[2019-02-16 16:02] LABS: Urine Bacteria FEW /hpf (None Seen); Urine Blood Negative /uL (Negative); Urine Mucus FEW (None Seen); Urine Specific Gravity 1.017 (1.001-1.035); Urine WBC 4 /hpf (0 - 5)
[2019-02-16 17:05] VITALS: BP 130/66
== END 2019-02-16 17:06 | disposition home or self-care (01) ==
LOC: ER 12:47
DX: D50.9 Iron deficiency anemia, unspecified (principal); T82.524A Displacement of infusion catheter, initial encounter; J44.9 Chronic obstructive pulmonary disease, unspecified; E11.9 Type 2 diabetes mellitus without complications; K21.9 Gastro-esophageal reflux disease without esophagitis; E78.5 Hyperlipidemia, unspecified; I10 Essential (primary) hypertension; E07.9 Disorder of thyroid, unspecified; Z88.8 Allergy status to other drugs, medicaments and biological substances; Z79.899 Other long term (current) drug therapy; Z79.01 Long term (current) use of anticoagulants; Z79.84 Long term (current) use of oral hypoglycemic drugs; Z98.51 Tubal ligation status; Z90.49 Acquired absence of other specified parts of digestive tract; Z90.710 Acquired absence of both cervix and uterus
CPT/HCPCS: 36415; 71045; 80053; 81001; 84484; 85025; 85610; 85730

== ENCOUNTER 2019-02-22 18:55 | Emergency (ER) | payer MEDICAID ==
[~2019-02-22] VITALS: Ht 175.3 cm; Wt 145.1 kg
[2019-02-22 20:03] LABS: Basophils # (auto) 0.1 uL; Eosinophils # (auto) 0.2 uL; Eosinophils % (auto) 2.2 % (0.0-7.0); Lymphocytes # (auto) 4.3 uL; Monocytes # (auto) 0.5 uL; Red Blood Cells 4.81 10^6/uL (4.0-5.20); White Blood Cell 10.4 10^3/uL (4.4-10.8)
[2019-02-22 20:05] LABS: Basophils % (auto) 0.5 % (0.0-2.0); Hematocrit 34.3 % (36.0-46.0); Hemoglobin 10.3 g/dL (12.2-16.2); Mean Corpuscular Hemoglobin 21.4 pg (28.0-32.0); Mean Corpuscular Volume 71.3 fL (80.0-100.0); Monocytes % (auto) 4.8 % (0.0-12.0); Neutrophils # (auto) 5.4 uL; Neutrophils % (auto) 51.5 % (37.0-80.0); Platelet Count (auto) 348 10^3/uL (140-450); Red Cell Distribution Width 20.4 % (11.8-14.3)
[2019-02-22 20:11] LABS: Albumin 3.2 g/dL (3.4-5.0); Anion Gap 11 (5-15); BUN/Creatinine Ratio 15.7; Blood Urea Nitrogen 17 mg/dL (7-18); Calcium 7.5 mg/dL (8.5-10.1); Carbon Dioxide 25 mmol/L (21-32); Chloride 102 mmol/L (98-107); GFR African American 68 mL/min; GFR Non-African American 56 mL/min; Glucose 170 mg/dL (74-106); Potassium 3.9 mmol/L (3.5-5.1); Sodium 138 mmol/L (136-145)
[2019-02-22 20:16] LABS: INR < 0.93 (0.9-1.15); Partial Thromboplastin Time 24.1 sec (23.64-32.05)
[2019-02-22 20:20] LABS: Alanine Aminotransferase 19 U/L (13-56); Alkaline Phosphatase 85 U/L (45-117); Aspartate Aminotransferase 15 U/L (15-37); Bilirubin, Total 0.2 mg/dL (0.2-1.0); Total Protein 7.3 g/dL (6.4-8.2)
[2019-02-23] MEDS ORDERED: ONDANSETRON HCL 4 MG/2 ML VIAL IV ONE (00:30)
[2019-02-23] MEDS ORDERED: SODIUM CHLORIDE 0.9% 1,000 ML IV ONE (03:00)
[2019-02-23] MEDS ORDERED: HYDROcodone-ACET 5/325MG TAB PO ONE (03:00)
[2019-02-23] MEDS ORDERED: IOHEXOL 350 MG/ML 100ML IJ ONE (03:16)
[2019-02-23 04:01] VITALS: BP 161/87
== END 2019-02-23 08:18 | disposition home or self-care (01) ==
LOC: ER 19:00
DX: F43.23 Adjustment disorder with mixed anxiety and depressed mood (principal); I73.9 Peripheral vascular disease, unspecified; J44.9 Chronic obstructive pulmonary disease, unspecified; R79.1 Abnormal coagulation profile; R06.4 Hyperventilation; I11.0 Hypertensive heart disease with heart failure; I50.9 Heart failure, unspecified; E11.9 Type 2 diabetes mellitus without complications; E78.5 Hyperlipidemia, unspecified; E07.9 Disorder of thyroid, unspecified; K21.9 Gastro-esophageal reflux disease without esophagitis; Z98.51 Tubal ligation status; Z90.49 Acquired absence of other specified parts of digestive tract; Z90.710 Acquired absence of both cervix and uterus
CPT/HCPCS: 36415; 71045; 71275; 80053; 83880; 84484; 85025; 85379; 85610; 85730; 93005; 93971; 96374; 99284; J7030; J2405

== ENCOUNTER 2023-01-31 18:17 | Emergency (ER) | payer MEDICAID ==
[~2023-01-31] VITALS: Ht 175.3 cm; Wt 122.0 kg
[~2023-01-31 18:17] MED LIST changes: -ESTR1TAB3 PO; +ESTR1TAB6 PO; -LIOT5TAB PO; +LIOT5TAB20 PO
[2023-01-31 19:11] VITALS: TEMP 98.3; O2SAT 95
[2023-01-31] MEDS ORDERED: HYDROcodone-ACET 5/325MG TAB PO ONE (19:30)
[2023-01-31] MEDS ORDERED: MORPHINE SULFATE 4 MG/ML SYR/VIAL IM ONE (22:00)
[2023-01-31] MEDS ORDERED: BACL10TA PO (22:24)
[2023-01-31] MEDS ORDERED: HYDR-4902 PO ×2 (22:24→22:25)
[2023-01-31 22:49] VITALS: BP 142/68; PULSE 70; RESP 16
[2023-02-01] MEDS ORDERED: HYDR-4902 PO (02:22)
== END 2023-01-31 23:13 | disposition home or self-care (01) ==
LOC: ER 18:17 → EDBD 18:17 → ER 23:12
DX: S76.011A Strain of muscle, fascia and tendon of right hip, initial encounter (principal); S83.91XA Sprain of unspecified site of right knee, initial encounter; S93.401A Sprain of unspecified ligament of right ankle, initial encounter; S70.11XA Contusion of right thigh, initial encounter; I11.0 Hypertensive heart disease with heart failure; I50.9 Heart failure, unspecified; J44.9 Chronic obstructive pulmonary disease, unspecified; E11.9 Type 2 diabetes mellitus without complications; K21.9 Gastro-esophageal reflux disease without esophagitis; E78.5 Hyperlipidemia, unspecified; Z90.49 Acquired absence of other specified parts of digestive tract; Z90.710 Acquired absence of both cervix and uterus; Z98.51 Tubal ligation status; W18.09XA Striking against other object with subsequent fall, initial encounter; Y93.89 Activity, other specified; Y92.89 Other specified places as the place of occurrence of the external cause; Y99.8 Other external cause status
CPT/HCPCS: 29505; 72170; 73552; 73562; 73610; 96372; 99284; J2270

== ENCOUNTER 2024-04-12 15:52 | Inpatient (IN) | payer MEDICAID ==
[~2024-04-12] VITALS: Ht 162.6 cm; Wt 122.5 kg
[~2024-04-12 15:52] MED LIST changes: +BACL10TA PO; +HYDR-4902 PO; -LIOT5TAB20 PO; +LIOT5TAB31 PO
[2024-04-12 16:22] VITALS: PULSE 82; RESP 14; O2SAT 95
[2024-04-12] MEDS: SODIUM CHLORIDE 0.9% 500 ML IVB ONE (16:32)
[2024-04-12 17:01] LABS: Basophils # (auto) 0.1 10 ^3/uL (0-0.2); Eosinophils # (auto) 0.2 10 ^3/uL (0-0.8); Monocytes # (auto) 0.6 10 ^3/uL (0-1.3); Neutrophils # (auto) 4.5 10 ^3/uL (1.6-8.6); White Blood Cell 8.3 10^3/uL (4.4-10.8)
[2024-04-12 17:03] LABS: Basophils % (auto) 0.9 % (0.0-2.0); Eosinophils % (auto) 1.9 % (0.0-7.0); Hematocrit 37.8 % (36.0-46.0); Lymphocytes # (auto) 2.9 10 ^3/uL (0.4-5.4); Lymphocytes % (auto) 34.7 % (10.0-50.0); Mean Corpuscular Hemoglobin 24.6 pg (28.0-32.0); Mean Corpuscular Hgb Conc. 31.7 g/dL (32.0-36.0); Mean Corpuscular Volume 77.5 fL (80.0-100.0); Monocytes % (auto) 7.8 % (0.0-12.0); Neutrophils % (auto) 54.7 % (37.0-80.0); Nucleated Red Blood Cells % 0.1 %; Platelet Count (auto) 246 10^3/uL (140-450); Red Blood Cells 4.88 10^6/uL (4.0-5.20); Red Cell Distribution Width 18.9 % (11.8-14.3)
[2024-04-12 17:25] LABS: Alanine Aminotransferase 18 U/L (7-40); Albumin 3.9 g/dL (3.2-4.8); Alkaline Phosphatase 69 U/L (46-116); Anion Gap 9 (5-15); Aspartate Aminotransferase 17 U/L (13-40); BUN/Creatinine Ratio 12.2 (10.0-20.0); Bilirubin, Total 0.4 mg/dL (0.2-1.0); Blood Alcohol < 3.0 mg/dL (<10); Blood Urea Nitrogen 12 mg/dL (9-23); Calcium 9.6 mg/dL (8.7-10.4); Carbon Dioxide 27 mmol/L (20-31); Chloride 104 mmol/L (98-107); Glucose 84 mg/dL (74-106); Potassium 3.7 mmol/L (3.5-5.1); Sodium 140 mmol/L (136-145); Total Protein 5.9 g/dL (5.7-8.2)
[2024-04-12] MEDS: DEXTROSE (50%) 50ML SYRG IV ONE (17:43)
[2024-04-12 18:42] LABS: Lactic Acid w/Reflex 2.3 mmol/L (0.4-2.0)
[2024-04-12 18:58] LABS: Urine Bacteria FEW /hpf (None Seen); Urine Blood Negative /uL (Negative); Urine Clarity Clear (Clear); Urine Color Light-Yellow (Yellow); Urine Protein, UAD Negative (Negative); Urine Urobilinogen Normal (Negative); Urine WBC 1 /hpf (0 - 5)
[2024-04-12] MEDS: SODIUM CHLORIDE 0.9% 1,000 ML IV ONE (19:15)
[2024-04-12] MEDS: DEXTROSE 50% SYRINGE 50 ML IV ONE (19:16)
[2024-04-12 19:44] VITALS: PULSE 74; RESP 16; O2SAT 98
[2024-04-12] MEDS ORDERED: ACETAMINOPHEN 325 MG TAB PO PRN (20:00)
[2024-04-12] MEDS ORDERED: NITROGLYCERIN 0.4 MG SL TAB SL PRN (20:00)
[2024-04-12] MEDS: ACCU-CHEK COMFORT CURVE STRIP VI SCH (20:00)
[2024-04-12] MEDS ORDERED: MORPHINE SULFATE INJ 2 MG/ml SYRG IV PRN (20:00)
[2024-04-12] MEDS ORDERED: DOCUSATE SOD 100 MG CAP PO PRN (20:00)
[2024-04-12] MEDS: DEXTROSE 10% 1,000 ML IV ONE (20:46)
[2024-04-12 21:00] VITALS: BP 135/73; PULSE 78; RESP 18; TEMP 98.6; O2SAT 100
[2024-04-13] VITALS (8 sets, daily range): BP systolic 107–144; BP diastolic 65–76; PULSE 67–87; RESP 16–19; TEMP 97.8–98.7; O2SAT 95–98
[2024-04-13] MEDS: DEXTROSE (50%) 50ML SYRG IV PRN (00:46)
[2024-04-13] MEDS: DEXTROSE 10% 1,000 ML IV ONE (04:01)
[2024-04-13 06:24] LABS: Chloride 103 mmol/L (98-107); Potassium 3.6 mmol/L (3.5-5.1); Sodium 141 mmol/L (136-145)
[2024-04-13 06:25] LABS: Anion Gap 10 (5-15); Carbon Dioxide 28 mmol/L (20-31)
[2024-04-13 06:30] LABS: Blood Urea Nitrogen 8 mg/dL (9-23)
[2024-04-13 06:31] LABS: Glucose 69 mg/dL (74-106)
[2024-04-13 06:32] LABS: Lactic Acid w/Reflex 2.1 mmol/L (0.4-2.0)
[2024-04-13 06:40] LABS: Basophils # (auto) 0 10 ^3/uL (0-0.2); Basophils % (auto) 0.4 % (0.0-2.0); Hemoglobin 10.7 g/dL (12.2-16.2); Monocytes # (auto) 0.6 10 ^3/uL (0-1.3); Neutrophils # (auto) 4.3 10 ^3/uL (1.6-8.6)
[2024-04-13 06:45] LABS: Eosinophils # (auto) 0.1 10 ^3/uL (0-0.8); Eosinophils % (auto) 1.6 % (0.0-7.0); Hematocrit 32.8 % (36.0-46.0); Lymphocytes # (auto) 3.2 10 ^3/uL (0.4-5.4); Lymphocytes % (auto) 38.9 % (10.0-50.0); Mean Corpuscular Hemoglobin 24.7 pg (28.0-32.0); Mean Corpuscular Hgb Conc. 32.6 g/dL (32.0-36.0); Mean Corpuscular Volume 75.7 fL (80.0-100.0); Monocytes % (auto) 7.8 % (0.0-12.0); Neutrophils % (auto) 51.3 % (37.0-80.0); Platelet Count (auto) 237 10^3/uL (140-450); Red Blood Cells 4.33 10^6/uL (4.0-5.20); Red Cell Distribution Width 18.1 % (11.8-14.3); White Blood Cell 8.3 10^3/uL (4.4-10.8)
[2024-04-13] MEDS: ENOXAPARIN SOD 40 MG/0.4 ML SYRINGE SC SCH (09:57)
[2024-04-13] MEDS: ONDANSETRON HCL 4 MG/2 ML VIAL IV PRN (09:58)
[2024-04-13 10:59] LABS: Lactic Acid w/Reflex 2.2 mmol/L (0.4-2.0)
[2024-04-13] MEDS: CALCITRIOL 0.25 MCG CAP PO SCH (14:39)
[2024-04-13] MEDS: ACCU-CHEK COMFORT CURVE STRIP VI SCH (14:47)
[2024-04-13] MEDS: SODIUM CHLORIDE 0.9% 500 ML IV ONE (21:21)
[2024-04-13] MEDS: diphenhdrAMINE HCL 50 MG/1 ML VL IV ONE (21:22)
[2024-04-13] MEDS: KETOROLAC TROMETH 30 MG/ML 1ML VIAL IV ONE (21:22)
[2024-04-13] MEDS: PRAVASTATIN SODIUM 20 MG TAB PO SCH (22:00)
[2024-04-13] MEDS: ATENOLOL 25 MG TAB PO SCH (22:00)
[2024-04-13] MEDS ORDERED: LORazepam 0.5 MG TAB PO PRN (22:30)
[2024-04-13] MEDS: DEXTROSE 10% 1,000 ML IV SCH (23:48)
[2024-04-14] VITALS (8 sets, daily range): BP systolic 111–135; BP diastolic 58–74; PULSE 63–88; RESP 16–18; TEMP 97.8–98.2; O2SAT 92–96
[2024-04-14 05:08] LABS: Anion Gap 8 (5-15); Carbon Dioxide 28 mmol/L (20-31); Chloride 101 mmol/L (98-107); Potassium 3.8 mmol/L (3.5-5.1); Sodium 137 mmol/L (136-145)
[2024-04-14 05:09] LABS: Calcium 9.1 mg/dL (8.7-10.4)
[2024-04-14 05:14] LABS: BUN/Creatinine Ratio 6.9 (10.0-20.0); Blood Urea Nitrogen 7 mg/dL (9-23); Glucose 81 mg/dL (74-106)
[2024-04-14] MEDS: LEVOTHYROXINE SODIUM 50 MCG TAB PO SCH (05:46)
[2024-04-14] MEDS: KETOROLAC TROMETH 30 MG/ML 1ML VIAL IV PRN (19:53)
[2024-04-15 08:00] VITALS: BP 135/77; PULSE 72; PULSE 79; RESP 16; RESP 18; TEMP 97.9; O2SAT 95
[2024-04-15 13:00] VITALS: BP 114/62; PULSE 74; RESP 18; TEMP 97.9; O2SAT 97
[2024-04-15 17:13] VITALS: BP 124/71; PULSE 77; RESP 19; TEMP 98.1; O2SAT 95
[2024-04-15] MEDS: NYSTATIN (MOUTH-THROAT) 500,000 UNITS/5 ML SUSP MT SCH (18:12)
[2024-04-15] MEDS: D5W/SOD CHL 0.45% 1,000 ML IV SCH (18:12)
[2024-04-15 20:00] VITALS: PULSE 77
[2024-04-15 21:00] VITALS: BP 117/73; PULSE 85; RESP 18; TEMP 98.2; O2SAT 98
[2024-04-16 05:00] VITALS: BP 93/54; PULSE 77; RESP 18; TEMP 97.8; O2SAT 96
[2024-04-16 08:00] VITALS: PULSE 69; PULSE 82; RESP 18; O2SAT 97
[2024-04-16 09:00] VITALS: BP 143/81; PULSE 82; RESP 18; TEMP 98.6; O2SAT 97
[2024-04-16 13:00] VITALS: BP 124/59; PULSE 83; RESP 18; TEMP 97.9; O2SAT 97
[2024-04-16 13:33] VITALS: BP 132/71; PULSE 67; RESP 16; TEMP 98.3; O2SAT 97
[2024-04-16 14:33] VITALS: BP 117/73; PULSE 85; TEMP 37
== END 2024-04-16 16:04 | disposition home health service (06) | DRG 420 ==
LOC: ER 15:52 → EDBD 15:52 → TELE 20:12 → TELE-WESTW 21:34
PROVIDERS: ADMIT Nurse Practitioner Family; ATTEND Nurse Practitioner Family
DX: E11.649 Type 2 diabetes mellitus with hypoglycemia without coma (principal); G93.41 Metabolic encephalopathy; E87.20 Acidosis, unspecified; I50.9 Heart failure, unspecified; G43.409 Hemiplegic migraine, not intractable, without status migrainosus; I11.0 Hypertensive heart disease with heart failure; K21.9 Gastro-esophageal reflux disease without esophagitis; J44.9 Chronic obstructive pulmonary disease, unspecified; R56.9 Unspecified convulsions; F41.9 Anxiety disorder, unspecified; R13.10 Dysphagia, unspecified; R32 Unspecified urinary incontinence; E78.5 Hyperlipidemia, unspecified; Z90.710 Acquired absence of both cervix and uterus; Z90.49 Acquired absence of other specified parts of digestive tract; Z86.73 Personal history of transient ischemic attack (TIA), and cerebral infarction without residual deficits; Z87.891 Personal history of nicotine dependence; Z83.3 Family history of diabetes mellitus; Z82.49 Family history of ischemic heart disease and other diseases of the circulatory system
CPT/HCPCS: 36415; 70450; 70551; 71045; 80048; 80053; 80320; 81001; 82962; 83036; 83605; 85025; 87040; 92610; 93005; 95819; 97110; 97116; 97163; 97530; 99291; G0378; J1885; J2405